=== PATIENT | male | born 1980 | race Caucasian/White ===

== ENCOUNTER 2025-04-11 15:58 | Emergency (ER) | payer MEDICAID, SELFPAY ==
--- NOTE | 2025-04-11 16:15 | EDNOTE_ITS ---
<Statement entered by Romana Nichols MD - 04/19/25 06:25> As co-signing physician, I was present and available for consult prn. I concur with the plan and care as documented by the midlevel provider. ED Seizures RME/HPI General Stated Complaint: SEIZURE Time Seen by Provider: 04/11/25 16:05 Arrival date/time: 04/11/25 15:58 RME / HPI RME / HPI Narrative: 45-year-old male patient with significant history of seizure disorder, stopped taking Keppra because he was prescribed with no medication that the patient barely started. Today patient developed tonic-clonic seizure lasting for few seconds. Currently patient is alert and oriented x 3, patient denies any complaints patient wanted to sign AGAINST MEDICAL ADVICE. Related Data Home Medications ?Medication ?Instructions ?Recorded ?Confirmed levetiracetam 250 mg tablet 500 mg PO BID 07/07/2005/25 (Keppra) Previous Rx's ?Medication ?Instructions ?Recorded ibuprofen 800 mg tablet 800 mg PO TID PRN pain #30 t abs 01/09/21 ibuprofen 800 mg tablet 800 mg PO TID PRN pain #30 t abs 11/01/22 hydrocodone 5 mg-acetaminophen 325 1 tab PO BID PRN pa in #8 tabs 11/03/22 mg tablet Allergies Allergy/AdvReac Type Severity Reaction Status Date / Time No Known Allergies Allergy Verified 11/03/22 13:25 Review of Systems Review of Systems Narrative Review of Systems: Review of system reviewed and within normal limits except mentioned in HPI ED Exam Narrative Physical exam: VITAL SIGNS: Reviewed. GENERAL APPEARANCE: Alert and interactive, follows commands, no acute distress, HEAD AND FACE: Non-traumatic. ENT: PERRL, pink conjunctivitis, eyelid no trauma, Mucous membrane moist. NECK: Supple, nontender, no nuchal rigidity. CHEST: No tenderness, no crepitus, no paradoxical movement, no retractions. LUNGS: Clear, well ventilated, symmetric, no rales, no wheezing, no ronchi, no stridor, good breath sounds bilaterally. HEART: Regular rate, regular rhythm, no murmur, no gallops. ABDOMEN: Soft, positive bowel sounds, nondistended, no guarding, nontender, no rebound, no masses, RECTAL: Deferred. GENITAL: Deferred. NEUROLOGICAL: Gross motor function intact sensory function intact, Appropriate for age. MUSCULOSKELETAL: low back nontender, full range of motion. EXTREMITIES: Nontender, full range of motion. SKIN: Color pink, dry, no rash, no lacerations, no abrasions, no contusions. LYMPHATICS: Deferred. Course Quality Measures none Orders Category Date Time Status Diazepam [Valium] Med 04/11/25 16:18 Discontinued 5 mg PO X1 ONE Seizure MDM Narrative MDM Narrative:: 45-year-old male patient with significant history of seizure disorder, stopped taking Keppra because he was prescribed with no medication that the patient barely started. Today patient developed tonic-clonic seizure lasting for few seconds. Currently patient is alert and oriented x 3, patient denies any complaints patient wanted to sign AGAINST MEDICAL ADVICE. Patient signed AMA Patient data External records reviewed:: None Clinical information provided by:: patient Social determinants that could affect healthcare access:: none Patient has the following chronic illnesses:: Seizure disorder How is presenting disease/condition affected by chronic disease/condition?: exacerbated by Evaluation data The following diagnostics were reviewed and interpreted by me:: other (specify) (None) Lab and/or radiology exams considered but not ordered:: None Interpretation Summary: None Medications / Prescriptions Medications or Prescriptions considered but not ordered:: None Medication administrations:: Medication Administration History Discontinued Medications Diazepam (Diazepam 5 Mg Tablet) 5 mg PO X1 ONE Stop: 04/11/25 16:19 Valium p.o. Consultations Consultation(s) initiated? (list below): No Diagnosis Seizure Differential Diagnosis: intractable seizure disorder, focal seizure and generalized seizure Most likely diagnosis given after review of the tests above:: Seizure disorder Admission Indicated Admission indicated?: not indicated Admission Request Was there a request for admission?: No Disposition Plan Disposition Plan: other (specify) Discharge Attestation Discharge Attestation: Pt has normal mental status and adequate capacity to make medical decisions. Oriented x 4. The patient refuses evaluation and treatment and wants to be discharged. The risks have been explained to the patient, including progression of possible worsening of current disease, worsening illness, chronic pain, permanent disability and . The benefits of evaluation and treatment have also been explained, including the availability and proximity of nurses, physicians, monitoring, diagnostic testing, and treatments. The patient was able to understand and state the risks and benefits of AMA.Patient had the opportunity to ask questions about their medical condition. He left hospital against medical advice. Discharge Plan Plan Patient Disposition: Left Against Medical Advice Prescriptions/Referrals Prescriptions/Med Rec: No Action ibuprofen 800 mg tablet 800 mg PO TID PRN (Reason: pain) Qty: 30 0RF levetiracetam [Keppra] 250 mg tablet 500 mg PO BID ibuprofen 800 mg tablet 800 mg PO TID PRN (Reason: pain) Qty: 30 0RF hydrocodone-acetaminophen 5-325 mg tablet 1 tab PO BID MDD 10 PRN (Reason: pain) Qty: 8 0RF Problem List Clinical Impression: Seizure disorder Patient/Caregiver Discharge Instructions Print Language: Portuguese
[2025-04-11 16:20] VITALS: PULSE 109; O2SAT 97
[2025-04-11 16:25] VITALS: BP 160/87; PULSE 109; RESP 18; TEMP 37; O2SAT 98
--- NOTE | 2025-04-11 17:22 | PC.NURSE ---
PATIENT WAS BROUGHT IN TO ED BY AMBULANCE. PATIENT HAD A WITNESSED SEIZURE THAT HAPPENED TODAY AT [facility] BY [facility]STAND[facility]. PER PATIENT HE DID NOT WANT TO HAVE TREATMENT AND WANTED TO LEAVE, HE HAS BEEN OFF OF HIS MEDICATION FOR ABOUT A WEEK. PATIENT WAS SWITCHED SEIZURE MEDICATIONS RECENTLY AND HAS NOT BEEN TAKING THEM. DENA CARDENAS MADE AWARE THAT PATIENT DID NOT WANT ANY TREATMENT AND WOULD LIKE TO SIGN OUT AMA. PER [employer] PATIENT TO BE GIVEN AMA FORM AND CAN BE SIGNED OUT. ALL RISK AND CONSEQUENCES EXPLAINED TO PATIENT BY DENA CARDENAS AT BEDSIDE. PATIENT AGREED. FORM SIGNED, IV REMOVED BEFORE DISCHARGE
== END 2025-04-11 17:00 | disposition left against medical advice (07) ==
LOC: SERX 17:20
PROVIDERS: Emergency Provider Emergency Medicine
DX: G40.909 Epilepsy, unspecified, not intractable, without status epilepticus (principal); Z53.29 Procedure and treatment not carried out because of patient's decision for other reasons
CPT/HCPCS: 99282